=== PATIENT | female | born 1955 | race Caucasian/White ===

== ENCOUNTER 2017-10-22 00:18 | Emergency (ER) | payer OTHER ==
[~2017-10-22] VITALS: Ht 170.2 cm; Wt 82.0 kg
[2017-10-22 00:24] VITALS: BP 130/73
== END 2017-10-22 01:19 | disposition left against medical advice (07) ==
LOC: ER 00:18
DX: R21 Rash and other nonspecific skin eruption (principal); L29.9 Pruritus, unspecified; Z53.21 Procedure and treatment not carried out due to patient leaving prior to being seen by health care provider